=== PATIENT | male | born 1940 | race Caucasian/White ===

== ENCOUNTER 2017-06-28 07:32 | Day surgery (SDC) | payer MEDICARE, BC ==
[~2017-06-28] VITALS: Ht 175.3 cm; Wt 95.2 kg
[~2017-06-28 07:32] MED LIST: ANTIVERT 25MG25 MG PO; ASPIRIN E.C. 8181 MG PO; CARDI-OMEGA1000 MG PO; CEPHALEXIN500 M1 PO; COLACE 100100 MG/CAP PO; FLEXERIL10 MG PO; HCTZ 25MG TAB25 MG PO; LORTAB 5/500 501 TAB PO; MULTIPLE VITAMI1 CAP PO; NORCO 325 MG-51 TAB PO; PRILOSEC 20MG20 MG PO; ULTRAM 50MG TAB50 MG PO; VITAMIN D31000 I1 PO; ZETIA 10MG TAB10 MG PO
[2017-06-28 07:57] VITALS: BP 168/89; PULSE 65; TEMP 97.5
[2017-06-28] MEDS ORDERED: LIPITOR 10MG10 MG PO (08:31)
[2017-06-28] MEDS ORDERED: FLONASEALLERGY NS (08:35)
[2017-06-28] MEDS ORDERED: QUESTRAN4 GM/9 GM PO (08:35)
[2017-06-28] MEDS ORDERED: ATARAX 25MG25 MG/TAB PO (08:36)
[2017-06-28 08:37] LABS: CALCIUM 8.8 mg/dL (8.4-10.2); CREATININE, serum 0.73 mg/dL (0.66-1.25)
[2017-06-28] MEDS ORDERED: ACULAR 10 ML10 ML OS (08:37)
[2017-06-28] MEDS ORDERED: TOPROL XL 25MG25 MG PO (08:37)
[2017-06-28] MEDS ORDERED: METAMUCIL MUL0.52 GM PO (08:38)
[2017-06-28] MEDS ORDERED: LASIX 20MG TABL20 MG PO (08:40)
[2017-06-28] MEDS ORDERED: TRIAMCINOLONE A15 GM TP (08:40)
[2017-06-28 10:11] VITALS: BP 116/71; PULSE 66
[2017-06-28] MEDS ORDERED: NORCO 325 MG-51 TAB PO (10:22)
[2017-06-28] MEDS ORDERED: MOTRIN 600600 MG/TAB PO (10:22)
[2017-06-28] MEDS ORDERED: COLACE 100100 MG/CAP PO (10:22)
[2017-06-28 10:26] VITALS: BP 117/71; PULSE 63
[2017-06-28 10:41] VITALS: BP 120/73; PULSE 61
[2017-06-28 10:56] VITALS: BP 127/71; PULSE 56
[2017-06-28 11:11] VITALS: BP 138/77; PULSE 58
== END 2017-06-28 11:50 | disposition home or self-care (01) ==
LOC: SDCO 07:32
PROVIDERS: Nurse Anesthetist, Certified Registered
DX: K42.9 Umbilical hernia without obstruction or gangrene (principal); I10 Essential (primary) hypertension; E78.5 Hyperlipidemia, unspecified; E11.9 Type 2 diabetes mellitus without complications; I35.1 Nonrheumatic aortic (valve) insufficiency; E03.9 Hypothyroidism, unspecified; K21.9 Gastro-esophageal reflux disease without esophagitis; Z79.82 Long term (current) use of aspirin; Z90.49 Acquired absence of other specified parts of digestive tract; Z82.49 Family history of ischemic heart disease and other diseases of the circulatory system; Z80.9 Family history of malignant neoplasm, unspecified
CPT/HCPCS: C1781; J2704; J3010; J7120

== ENCOUNTER 2017-08-23 18:29 | Emergency (ER) | payer MEDICARE, BC ==
[~2017-08-23] VITALS: Ht 175.3 cm; Wt 92.7 kg
[~2017-08-23 18:29] MED LIST changes: +ACULAR 10 ML10 ML OS; +ATARAX 25MG25 MG/TAB PO; +FLONASEALLERGY NS; +LASIX 20MG TABL20 MG PO; +LIPITOR 10MG10 MG PO; +METAMUCIL MUL0.52 GM PO; +MOTRIN 600600 MG/TAB PO; +QUESTRAN4 GM/9 GM PO; +TOPROL XL 25MG25 MG PO; +TRIAMCINOLONE A15 GM TP
[2017-08-23 18:48] VITALS: TEMP 98.1
[2017-08-23 19:45] LABS: BASO % 0.4 % (0.0-2.0); EOS # 0.1 (0.0-0.7); EOS % 0.6 % (0-4.0); GRAN # 6.3 (1.4-6.5); GRAN % 79.5 % (42.2-75.2); HEMATOCRIT 43.3 % (42.0-52.0); HEMOGLOBIN 14.6 g/dl (13.5-18.0); LYMPH # 1.1 (1.2-3.4); LYMPH % 14.1 % (20.0-51.0); MEAN CELL VOLUME 91 fl (80.0-100.0); MEAN CORPUSCULAR HEMOGLOBIN 31 pg (27.0-31.0); MEAN CORPUSCULAR HGB CONC 34 g/dl (33.0-37.0); MEAN PLATELET VOLUME 9.2 fl (7.4-10.4); MONO # 0.4 (0.1-0.6); MONO % 5.1 % (1.7-9.3); PLATELET COUNT 143 K/mm3 (130-400); RED BLOOD COUNT 4.77 M/mm3 (4.20-5.60); REDCELL DISTRIBUTION WIDTH-CV 12.1 % (11.5-14.5)
[2017-08-23 19:45] LABS: COLLECTION METHOD CLEAN CATCH
[2017-08-23 19:54] LABS: MUCOUS Present /lpf; PH 5 (5-8); SQUAMOUS EPITHELIAL None Seen /hpf; URINE APPEARANCE Clear; URINE BACTERIA None Seen /hpf; URINE BILIRUBIN Negative (NEGATIVE); URINE BLOOD Negative (NEGATIVE); URINE COLOR Amber; URINE GLUCOSE Negative (NEGATIVE); URINE KETONE Trace (NEGATIVE); URINE LEUKOCYTE ESTERASE Negative (NEGATIVE); URINE NITRATE Negative (NEGATIVE); URINE PROTEIN(semi-quant) 1+ (NEGATIVE); URINE RBC 0-2 /hpf; URINE UROBILINOGEN Negative (NEGATIVE)
[2017-08-23] MEDS ORDERED: COLACE 100100 MG/CAP PO (19:55)
[2017-08-23 20:03] LABS: ALANINE AMINOTRANSFERASE 63 U/L (21-72); ALBUMIN 4.2 gm/dL (3.5-5.0); ALKALINE PHOSPHATASE 78 U/L (50-136); ANION GAP 10 mmol/L (7-16); AST,SGOT 43 U/L (15-37); BILIRUBIN,TOTAL 0.7 mg/dL (0.0-1.0); BLOOD UREA NITROGEN 22 mg/dL (9-20); CALCIUM 9.8 mg/dL (8.4-10.2); CARBON DIOXIDE 25 mmol/L (22-30); CHLORIDE 102 mmol/L (98-107); CREATININE, serum 0.89 mg/dL (0.66-1.25); GLUCOSE 153 mg/dL (74-106); LIPASE 137 U/L (23-300); POTASSIUM 4.1 mmol/L (3.4-5.0); SODIUM 137 mmol/L (137-145); TOTAL PROTEIN 6.5 gm/dL (6.4-8.2)
[2017-08-23 20:08] LABS: C-REACTIVE PROTEIN < 0.5 mg/dL (0.0-0.9)
[2017-08-23] MEDS ORDERED: FLOMAX 0.40.4 MG/CAP PO (21:49)
[2017-08-23] MEDS ORDERED: NORCO 325 MG-51 TAB PO (21:49)
[2017-08-23] MEDS ORDERED: ZOFRAN 4MG T4 MG/TAB PO (21:49)
[2017-08-23 22:04] VITALS: BP 161/99; PULSE 73
== END 2017-08-23 22:14 | disposition home or self-care (01) ==
LOC: COL.ER 18:29
PROVIDERS: Emergency Medicine
DX: N20.1 Calculus of ureter (principal); N23 Unspecified renal colic; Z79.82 Long term (current) use of aspirin; Z79.51 Long term (current) use of inhaled steroids
CPT/HCPCS: J1170; J2405; J7030

== ENCOUNTER 2017-08-25 14:20 | Day surgery (SDC) | payer MEDICARE, BC ==
[2017-08-25] VITALS (10 sets, daily range): BP systolic 122–161; BP diastolic 65–90; PULSE 63–106; TEMP 97.8–98.6
[~2017-08-25] VITALS: Ht 175.3 cm; Wt 96.7 kg
[~2017-08-25 14:20] MED LIST changes: +FLOMAX 0.40.4 MG/CAP PO; +ZOFRAN 4MG T4 MG/TAB PO
== END 2017-08-25 22:30 | disposition home or self-care (01) ==
LOC: SDCO 14:20 → SURG 18:50 → SDCO 22:30
DX: N20.1 Calculus of ureter (principal); I10 Essential (primary) hypertension; K21.9 Gastro-esophageal reflux disease without esophagitis; M17.9 Osteoarthritis of knee, unspecified; M16.9 Osteoarthritis of hip, unspecified; Z90.49 Acquired absence of other specified parts of digestive tract; Z88.1 Allergy status to other antibiotic agents; Z87.891 Personal history of nicotine dependence; Z82.49 Family history of ischemic heart disease and other diseases of the circulatory system
CPT/HCPCS: OP; C1769; J0690; J1100; J1885; J2270; J2405; J2704; J3010; J7030; Q9967

== ENCOUNTER 2018-02-17 13:02 | Day surgery (SDC) | payer MEDICARE, BC ==
[~2018-02-17] VITALS: Ht 170.2 cm; Wt 91.6 kg
[2018-02-17 13:34] VITALS: BP 139/88; PULSE 102; TEMP 97.7
[2018-02-17] MEDS ORDERED: VOLTAREN GEL 1%1 TU TP (13:46)
[2018-02-17] MEDS ORDERED: PROTONIX 40MG T40 MG PO (13:46)
[2018-02-17] MEDS ORDERED: METAMUCIL3.4 GM/Dos PO (13:49)
[2018-02-17] MEDS ORDERED: VITAMIN D31000 IU PO (13:50)
[2018-02-17 15:00] VITALS: BP 126/77; PULSE 80; TEMP 98.5
[2018-02-17 15:15] VITALS: BP 116/74; PULSE 82
[2018-02-17 15:30] VITALS: BP 125/99; PULSE 90
== END 2018-02-17 15:50 | disposition home or self-care (01) ==
LOC: SDCO 13:02
DX: K26.9 Duodenal ulcer, unspecified as acute or chronic, without hemorrhage or perforation (principal); K31.7 Polyp of stomach and duodenum; K92.1 Melena; D50.0 Iron deficiency anemia secondary to blood loss (chronic); K57.30 Diverticulosis of large intestine without perforation or abscess without bleeding; K21.9 Gastro-esophageal reflux disease without esophagitis; E78.00 Pure hypercholesterolemia, unspecified; I10 Essential (primary) hypertension; K58.9 Irritable bowel syndrome, unspecified; Z86.010 Personal history of colon polyps
CPT/HCPCS: OP; J2250; J3010; J7030

== ENCOUNTER 2018-03-23 11:26 | Outpatient (CLI) | payer MEDICARE, BC ==
[~2018-03-23] VITALS: Ht 170.2 cm; Wt 90.1 kg
[~2018-03-23 11:26] MED LIST changes: +METAMUCIL3.4 GM/Dos PO; +PROTONIX 40MG T40 MG PO; +VITAMIN D31000 IU PO; +VOLTAREN GEL 1%1 TU TP
[2018-03-23 11:50] VITALS: BP 104/72; PULSE 104; TEMP 97.3
[2018-03-23 13:00] VITALS: BP 108/72; PULSE 94
== END 2018-03-23 13:05 | disposition home or self-care (01) ==
LOC: EUO 11:26
DX: D64.9 Anemia, unspecified (principal); I95.9 Hypotension, unspecified; Z98.890 Other specified postprocedural states
CPT/HCPCS: J7030

== ENCOUNTER 2018-03-24 11:25 | Inpatient (IN) | payer MEDICARE, BC ==
[~2018-03-24] VITALS: Ht 172.7 cm; Wt 91.1 kg
[2018-03-24 12:39] VITALS: BP 113/72; PULSE 85; TEMP 97.9
[2018-03-24 15:17] LABS: BASO % 0.3 % (0.0-2.0); EOS # 0.1 (0.0-0.7); EOS % 0.8 % (0-4.0); GRAN # 3.6 (1.4-6.5); GRAN % 58.4 % (42.2-75.2); HEMOGLOBIN 10.1 g/dl (13.5-18.0); LYMPH # 1.9 (1.2-3.4); LYMPH % 31.3 % (20.0-51.0); MEAN CELL VOLUME 92 fl (80.0-100.0); MEAN CORPUSCULAR HEMOGLOBIN 30 pg (27.0-31.0); MEAN CORPUSCULAR HGB CONC 33 g/dl (33.0-37.0); MEAN PLATELET VOLUME 9.8 fl (7.4-10.4); MONO # 0.6 (0.1-0.6); PLATELET COUNT 164 K/mm3 (130-400); RED BLOOD COUNT 3.36 M/mm3 (4.20-5.60); REDCELL DISTRIBUTION WIDTH-CV 13.1 % (11.5-14.5)
[2018-03-24 15:20] LABS: HEMATOCRIT 30.9 % (42.0-52.0)
[2018-03-24 15:22] LABS: ALBUMIN 3.5 gm/dL (3.5-5.0); BILIRUBIN,TOTAL 0.4 mg/dL (0.0-1.0); CALCIUM 8.4 mg/dL (8.4-10.2); CREATININE, serum 0.74 mg/dL (0.66-1.25); POTASSIUM 3.8 mmol/L (3.4-5.0); TOTAL PROTEIN 5.8 gm/dL (6.4-8.2)
[2018-03-24 19:47] VITALS: BP 126/75; PULSE 75; TEMP 98
[2018-03-24 23:20] VITALS: BP 113/49; PULSE 63; TEMP 98.4
[2018-03-25 04:26] VITALS: BP 128/67; PULSE 66; TEMP 98.2
[2018-03-25 06:53] LABS: CALCIUM 7.9 mg/dL (8.4-10.2); CREATININE, serum 0.69 mg/dL (0.66-1.25); POTASSIUM 3.9 mmol/L (3.4-5.0)
[2018-03-25 07:03] VITALS: BP 138/67; PULSE 65; TEMP 98.2
[2018-03-25 09:21] LABS: MEAN CELL VOLUME 89 fl (80.0-100.0); MEAN CORPUSCULAR HGB CONC 34 g/dl (33.0-37.0); MEAN PLATELET VOLUME 9.9 fl (7.4-10.4); PLATELET COUNT 143 K/mm3 (130-400); RED BLOOD COUNT 3.21 M/mm3 (4.20-5.60); REDCELL DISTRIBUTION WIDTH-CV 12.8 % (11.5-14.5)
[2018-03-25 09:25] LABS: HEMATOCRIT 28.6 % (42.0-52.0); HEMOGLOBIN 9.6 g/dl (13.5-18.0); MEAN CORPUSCULAR HEMOGLOBIN 30 pg (27.0-31.0)
[2018-03-25 11:33] VITALS: BP 152/73; PULSE 67; TEMP 98
[2018-03-25 15:09] VITALS: BP 147/74; PULSE 75; TEMP 97.8
[2018-03-25 19:19] VITALS: BP 149/60; PULSE 65; TEMP 98
[2018-03-26 00:30] VITALS: BP 151/71; PULSE 76; TEMP 97.8
[2018-03-26 04:05] VITALS: BP 148/65; PULSE 66; TEMP 98.3
[2018-03-26 06:03] LABS: BASO % 0.6 % (0.0-2.0); EOS # 0.1 (0.0-0.7); EOS % 2.3 % (0-4.0); GRAN # 2.6 (1.4-6.5); GRAN % 53.9 % (42.2-75.2); HEMATOCRIT 28.6 % (42.0-52.0); HEMOGLOBIN 9.6 g/dl (13.5-18.0); LYMPH # 1.7 (1.2-3.4); LYMPH % 34.3 % (20.0-51.0); MEAN CELL VOLUME 91 fl (80.0-100.0); MEAN CORPUSCULAR HEMOGLOBIN 30 pg (27.0-31.0); MEAN CORPUSCULAR HGB CONC 34 g/dl (33.0-37.0); MEAN PLATELET VOLUME 10.2 fl (7.4-10.4); MONO # 0.4 (0.1-0.6); MONO % 8.5 % (1.7-9.3); PLATELET COUNT 139 K/mm3 (130-400); RED BLOOD COUNT 3.15 M/mm3 (4.20-5.60); REDCELL DISTRIBUTION WIDTH-CV 12.8 % (11.5-14.5)
[2018-03-26 07:29] VITALS: BP 140/65; PULSE 69; TEMP 98.5
[2018-03-26] MEDS ORDERED: FERROUS SU325 MG/TAB PO (09:04)
== END 2018-03-26 10:51 | disposition home or self-care (01) | DRG 378 ==
LOC: MEDICAL 11:25
PROVIDERS: Internal Medicine; Internal Medicine Gastroenterology
PROC: 0W3P8ZZ Control Bleeding in Gastrointestinal Tract, Via Natural or Artificial Opening Endoscopic (ICD-10-PCS; principal; 2018-03-24 16:00)
DX: K26.4 Chronic or unspecified duodenal ulcer with hemorrhage (principal); D62 Acute posthemorrhagic anemia; I10 Essential (primary) hypertension; Z87.891 Personal history of nicotine dependence
CPT/HCPCS: 99222-AI; 99232-AI; 99239; J2250; J3010

== ENCOUNTER → 2018-11-03 | Outpatient (CLI) | payer MEDICARE, BC ==
[~2018-11-03] MED LIST changes: +FERROUS SU325 MG/TAB PO
== END ==
LOC: COL.RAD 10:53
DX: K57.30 Diverticulosis of large intestine without perforation or abscess without bleeding (principal); M46.96 Unspecified inflammatory spondylopathy, lumbar region; M16.11 Unilateral primary osteoarthritis, right hip; K76.0 Fatty (change of) liver, not elsewhere classified; Z90.49 Acquired absence of other specified parts of digestive tract; D35.02 Benign neoplasm of left adrenal gland; N20.2 Calculus of kidney with calculus of ureter

== ENCOUNTER → 2019-12-06 | Outpatient (CLI) | payer MEDICARE, BC | LOC: COL.RAD 13:41 | DX: N20.0 Calculus of kidney (principal); N28.89 Other specified disorders of kidney and ureter; Z90.49 Acquired absence of other specified parts of digestive tract ==

== ENCOUNTER 2019-12-29 05:12 | Emergency (ER) | payer MEDICARE, BC ==
[~2019-12-29] VITALS: Ht 175.3 cm; Wt 90.9 kg
[2019-12-29 05:16] VITALS: TEMP 98
[2019-12-29] MEDS ORDERED: NORCO 325 MG-51 TAB PO (05:59)
[2019-12-29] MEDS ORDERED: ZOFRAN ODT4 MG PO (06:00)
[2019-12-29 07:03] VITALS: BP 171/93; PULSE 65
== END 2019-12-29 07:03 | disposition home or self-care (01) ==
LOC: COL.ER 05:12
DX: R10.9 Unspecified abdominal pain (principal); I10 Essential (primary) hypertension; E78.5 Hyperlipidemia, unspecified; Z87.442 Personal history of urinary calculi; Z90.49 Acquired absence of other specified parts of digestive tract; Z98.890 Other specified postprocedural states

== ENCOUNTER 2019-12-29 09:00 | Observation (INO) | payer MEDICARE, BC ==
[2019-12-29] VITALS (11 sets, daily range): BP systolic 138–154; BP diastolic 68–88; PULSE 66–73; TEMP 98.3–98.7
[~2019-12-29] VITALS: Ht 175.3 cm; Wt 94.2 kg
[~2019-12-29 09:00] MED LIST changes: +ZOFRAN ODT4 MG PO
--- NOTE | 2019-12-29 10:30 | NUR ---
Patient arrived to floor just after 0900 ambulatory with admissions. Patient is alert and oriented, answers questions appropriately. Admission assessment is completed, medication reconciliation completed. 20G IV placed in RAC with one attempt. Morphine HEALTH POLICY NURSE initated per kidney stone order set. PRN zofran administered per patient request after he reported that he had some nausea and had vomited twice today. Patient did not report emesis. Patient currently resting and denies further needs, call llight within reach.
--- NOTE | 2019-12-29 14:20 | NUR ---
Plan: To return home with Asha h C Assessment: Patient reports taht he resides locally with and his pcp is Dr. Rodarte, Jonathon w/ upcoming appointment in 4 weeks. Patient reports that he uses [facility] for medications. Patient denies 02 use at home. JOSAFAT is his and son Kathi. Patient reports that he has transportation home and does not have difficulty with medications. Patient report that he is receiving good care. ACtion: SW educated patient on services and community suports. Will continue to follow care.
--- NOTE | 2019-12-29 17:46 | NUR ---
Patient currently resting in bed, rouses easily, and remains alert and oriented while awake. Patient reports that pain is well controlled. Patient does report frustration that the DREDGE BOAT ENGINEER pauses and then alarms frequently due to the fact that he breathes through his mouth while sleeping and the CO2 monitor does not register his breaths. Educated patient on end tidal CO2 monitor purpose and function, patient verbalized understanding. Patient denies further needs at this time, call light within reach.
--- NOTE | 2019-12-29 18:55 | NUR ---
PATIENT RESTING IN BED DURING CHANGE OF SHIFT REPORT RECEIVED FROM DAY SHIFT NURSEJUNIE. IVF AND AQUATIC ECOLOGIST IN PLACE AND PATENT, VOIDING SEMI LIGHT ALEKSANDRA URINE WITH NO DEBRIS STRAINED OUT.
--- NOTE | 2019-12-29 20:00 | NUR ---
PATIENT VOIDING WITH NO PROBLEMS OR CONCERNS. CONTINUE TO STRAIN URINE, WITH NO DEBRIS OR STONES OBSERVED. REPORTS PRIMER SUPERVISOR HELPS WITH PAIN CONTROL AT THIS TIME.
[2019-12-30] VITALS (11 sets, daily range): BP systolic 122–169; BP diastolic 57–93; PULSE 62–104; TEMP 97.9–99.5
--- NOTE | 2019-12-30 01:26 | NUR ---
PATIENT SLEEPING, CO2 MONITOR IN PLACE, INTERMITTENTLY ALARMS OFF DUE TO PATIENT MOUTH BREATHING WITH SLEEPING. DOES NOT AWAKEN WITH ALARMS GOING OFF, DOES AWAKEN EASILY. IVF AND BLANKET CUTTER HAND CONTINUES WITH NO PROBLEMS.
--- NOTE | 2019-12-30 07:00 | NUR ---
PATIENT UP INDEPENDENTLY IN ROOM DURING CHANGE OF SHIFT REPORT GIVEN TO DAY SHIFT NURSEJUNIE.
--- NOTE | 2019-12-30 08:00 | NUR ---
Patient resting in bed at this time. Patient is sleepy but rouses easily. PRIMARY EDUCATION PROFESSOR in place. Patient reports that pain is well controlled. Patient voiding into the urinal independently, urine is corina, no sediment apparent when strained. Patient denies further needs at this time,c all light within reach.
--- NOTE | 2019-12-30 16:45 | NUR ---
Patient arrives back to floor from PACU at approximately 1645 via bed. Patient is sleepy, rouses with some effort and returns to sleep quickly. Post op checks initiated. Call light within reach.
--- NOTE | 2019-12-30 18:45 | NUR ---
PATIENT UP IN ROOM INDEPENDENTLY DURING CHANGE OF SHIFT REPORT RECEIVED FROM JUNIE. PATIENT STATES HE IS READY TO BE DISMISSED, TOLERATING ORAL INTAKE OF SOLID FOOD, VOIDING WITH NO PROBLEMS OR CONCERNS. PATIENT REPORTS HE FEELS BETTER THAN HE HAS FELT IN THE LAST 2-3 WEEKS.
--- NOTE | 2019-12-30 19:45 | NUR ---
REVIEWED WITH PATIENT DISCHARGE INSTRUCTIONS, CRITERIA MET FOR DISCHARGE POST OP, SEE DISCHARGE PAPERWORK. PATIENT TO BE DISCHARGE TO HOME WITH , DENIES ANY FURTHER QUESTIONS/CONCERNS REGARDING DISCHARGE INSTRUCTION.
--- NOTE | 2019-12-30 20:00 | NUR ---
PATIENT DISCHARGED OFF SURGICAL UNIT VIA W/C, ACCOMPANIED BY RN.
== END 2019-12-30 20:00 | disposition home or self-care (01) ==
LOC: SURG 09:00
PROVIDERS: ADMIT Urology
DX: N20.1 Calculus of ureter (principal); Z88.1 Allergy status to other antibiotic agents; Z79.899 Other long term (current) drug therapy
CPT/HCPCS: C1769; C2617; G0378; J1100; J2270; J2405; J2704; J3010; J7030; Q9967

== ENCOUNTER 2020-06-09 20:33 | Emergency (ER) | payer MEDICARE, BC ==
[~2020-06-09] VITALS: Ht 172.7 cm; Wt 93.2 kg
[2020-06-09 20:38] VITALS: TEMP 98.3
[2020-06-09 20:47] LABS: BASO % 0.3 % (0.0-2.0); EOS # 0.1 (0.0-0.7); GRAN # 6.2 (1.4-6.5); GRAN % 69.9 % (42.2-75.2); HEMATOCRIT 41.5 % (42.0-52.0); LYMPH # 1.9 (1.2-3.4); LYMPH % 21.4 % (20.0-51.0); MEAN CELL VOLUME 93 fl (80.0-100.0); MEAN CORPUSCULAR HEMOGLOBIN 32 pg (27.0-31.0); MEAN CORPUSCULAR HGB CONC 34 g/dl (33.0-37.0); MEAN PLATELET VOLUME 9.8 fl (7.4-10.4); MONO # 0.6 (0.1-0.6); MONO % 7.1 % (1.7-9.3); PLATELET COUNT 116 K/mm3 (130-400); RED BLOOD COUNT 4.45 M/mm3 (4.20-5.60); REDCELL DISTRIBUTION WIDTH-CV 12.7 % (11.5-14.5)
[2020-06-09 21:00] LABS: BILIRUBIN,TOTAL 0.6 mg/dL (0.0-1.0); CALCIUM 9.1 mg/dL (8.4-10.2); CREATININE, serum 0.86 (0.66-1.25); POTASSIUM 3.7 mmol/L (3.4-5.0); TOTAL PROTEIN 6.1 gm/dL (6.4-8.2)
[2020-06-09 21:13] LABS: TROPONIN-I 0.128 ng/mL (0.000-0.035)
[2020-06-09] MEDS ORDERED: ONE-A-DAY ESSE1 EACH PO (22:32)
[2020-06-09] MEDS ORDERED: COLACE 100100 MG/CAP PO (22:40)
[2020-06-09] MEDS ORDERED: FIBER0.52 GM PO (22:41)
[2020-06-10 00:02] VITALS: BP 156/88; PULSE 72
== END 2020-06-10 | disposition short-term general hospital (02) ==
LOC: COL.ER 20:33
PROVIDERS: Emergency Medicine
DX: I71.00 Dissection of unspecified site of aorta (principal); E78.5 Hyperlipidemia, unspecified; I10 Essential (primary) hypertension; Z20.828 Contact with and (suspected) exposure to other viral communicable diseases; Z88.1 Allergy status to other antibiotic agents
CPT/HCPCS: Q9967

== ENCOUNTER 2020-10-15 11:49 | Outpatient (RCR) | payer MEDICARE, BC ==
[~2020-10-15 11:49] MED LIST changes: +FIBER0.52 GM PO; +ONE-A-DAY ESSE1 EACH PO
== END 2020-10-17 16:06 | disposition home or self-care (01) ==
LOC: COL.CR 11:49
DX: Z48.812 Encounter for surgical aftercare following surgery on the circulatory system (principal); Z95.2 Presence of prosthetic heart valve; I35.1 Nonrheumatic aortic (valve) insufficiency

== ENCOUNTER 2020-11-06 18:34 | Emergency (ER) | payer MEDICARE, BC ==
[~2020-11-06] VITALS: Ht 175.3 cm; Wt 91.4 kg
[2020-11-06 18:44] VITALS: TEMP 98.1
[2020-11-06 19:48] LABS: BASO % 0.5 % (0.0-2.0); EOS # 0.1 (0.0-0.7); GRAN # 3.7 (1.4-6.5); GRAN % 60.7 % (42.2-75.2); HEMATOCRIT 38.7 % (42.0-52.0); HEMOGLOBIN 13.1 g/dl (13.5-18.0); LYMPH # 1.8 (1.2-3.4); LYMPH % 28.7 % (20.0-51.0); MEAN CELL VOLUME 91 fl (80.0-100.0); MEAN CORPUSCULAR HEMOGLOBIN 31 pg (27.0-31.0); MEAN CORPUSCULAR HGB CONC 34 g/dl (33.0-37.0); MEAN PLATELET VOLUME 9.2 fl (7.4-10.4); MONO # 0.5 (0.1-0.6); MONO % 8.8 % (1.7-9.3); PLATELET COUNT 151 K/mm3 (130-400); RED BLOOD COUNT 4.27 M/mm3 (4.20-5.60); REDCELL DISTRIBUTION WIDTH-CV 13.9 % (11.5-14.5)
[2020-11-06 20:02] LABS: ANION GAP 6 mmol/L (7-16); BLOOD UREA NITROGEN 28 mg/dL (9-20); CALCIUM 9.2 mg/dL (8.4-10.2); CARBON DIOXIDE 27 mmol/L (22-30); CHLORIDE 103 mmol/L (98-107); GLUCOSE 98 mg/dL (74-106); POTASSIUM 4.2 mmol/L (3.4-5.0); SODIUM 135 mmol/L (137-145)
[2020-11-06 20:03] LABS: C-REACTIVE PROTEIN < 0.5 mg/dL (0.0-0.9)
[2020-11-06 20:24] LABS: STREP SCREEN NEGATIVE
[2020-11-06 21:56] LABS: ERYTHROCYTE SEDIMENTATION RATE 1 mm/hr (0-30)
[2020-11-06 22:30] VITALS: BP 136/78; PULSE 84
== END 2020-11-06 21:35 | disposition home or self-care (01) ==
LOC: COL.ER 18:34
PROVIDERS: Emergency Medicine
DX: J02.9 Acute pharyngitis, unspecified (principal); I25.10 Atherosclerotic heart disease of native coronary artery without angina pectoris; I10 Essential (primary) hypertension; E78.5 Hyperlipidemia, unspecified; Z87.891 Personal history of nicotine dependence; Z88.1 Allergy status to other antibiotic agents; Z79.899 Other long term (current) drug therapy
CPT/HCPCS: Q9967

== ENCOUNTER 2021-06-26 09:43 | Outpatient (CLI) | payer MEDICARE, BC ==
[~2021-06-26] VITALS: Ht 175.4 cm; Wt 95.3 kg
[~2021-06-26 09:43] MED LIST changes: -FIBER0.52 GM PO; -LIPITOR 10MG10 MG PO; +LIPITOR 40MG TA40 MG PO; -TOPROL XL 25MG25 MG PO; +TOPROL XL 50MG50 MG PO
[2021-06-26 10:12] VITALS: BP 124/75; PULSE 68; TEMP 98
[2021-06-26] MEDS ORDERED: TYLENOL 500MG500 MG PO (10:15)
[2021-06-26] MEDS ORDERED: ZYRTEC5 MG PO (10:16)
[2021-06-26] MEDS ORDERED: ASPIRIN E.C. 8181 MG PO (10:16)
[2021-06-26] MEDS ORDERED: CORDARONE200 MG/TAB PO (10:16)
[2021-06-26] MEDS ORDERED: FLONASE NASAL S16 GM NS (10:17)
[2021-06-26] MEDS ORDERED: LASIX 40MG TABL40 MG PO (10:17)
[2021-06-26] MEDS ORDERED: MUCINEX 60600 MG/TA1 PO (10:18)
[2021-06-26] MEDS ORDERED: NAMENDA5 MG PO (10:19)
[2021-06-26] MEDS ORDERED: COZAAR 50MG50 MG/TAB PO (10:19)
[2021-06-26] MEDS ORDERED: K-DUR20 MEQ PO (10:20)
[2021-06-26] MEDS ORDERED: MIRALAX PA17 GM/Dose PO (10:20)
[2021-06-26] MEDS ORDERED: COUMADIN 1MG1 MG/TAB PO (10:22)
[2021-06-26] MEDS ORDERED: CLEOCIN HC150 MG/CAP PO (11:52)
--- NOTE | 2021-06-26 12:00 | NUR ---
Discharge instructions given to pt.Pt verbalizes understanding.Pt escorted out by this nurse.
== END 2021-06-26 12:19 ==
LOC: COL.CAR 09:43
DX: I49.8 Other specified cardiac arrhythmias (principal); I10 Essential (primary) hypertension; I48.91 Unspecified atrial fibrillation; I35.1 Nonrheumatic aortic (valve) insufficiency; K21.9 Gastro-esophageal reflux disease without esophagitis; E78.5 Hyperlipidemia, unspecified; E03.9 Hypothyroidism, unspecified; R73.01 Impaired fasting glucose; M19.90 Unspecified osteoarthritis, unspecified site; M81.0 Age-related osteoporosis without current pathological fracture; Z86.73 Personal history of transient ischemic attack (TIA), and cerebral infarction without residual deficits; Z79.01 Long term (current) use of anticoagulants; Z90.49 Acquired absence of other specified parts of digestive tract; Z79.82 Long term (current) use of aspirin; Z95.2 Presence of prosthetic heart valve; Z79.899 Other long term (current) drug therapy; Z87.891 Personal history of nicotine dependence; Z80.9 Family history of malignant neoplasm, unspecified
CPT/HCPCS: 27886; C1764

== ENCOUNTER → 2021-10-13 | Outpatient (CLI) | payer MEDICARE, BC ==
[~2021-10-13] MED LIST changes: +CLEOCIN HC150 MG/CAP PO; +CORDARONE200 MG/TAB PO; +COUMADIN 1MG1 MG/TAB PO; +COZAAR 50MG50 MG/TAB PO; +FLONASE NASAL S16 GM NS; +K-DUR20 MEQ PO; +LASIX 40MG TABL40 MG PO; +MIRALAX PA17 GM/Dose PO; +MUCINEX 60600 MG/TA1 PO; +NAMENDA5 MG PO; +TYLENOL 500MG500 MG PO; +ZYRTEC5 MG PO
== END ==
LOC: COL.RAD 14:04
DX: I77.810 Thoracic aortic ectasia (principal); I10 Essential (primary) hypertension; Z95.2 Presence of prosthetic heart valve
CPT/HCPCS: Q9967

== ENCOUNTER 2022-01-06 08:25 | Day surgery (SDC) | payer MEDICARE, BC ==
[~2022-01-06] VITALS: Ht 175.3 cm; Wt 101.3 kg
[2022-01-06] VITALS (10 sets, daily range): BP systolic 111–154; BP diastolic 69–91; PULSE 53–78; TEMP 97.5–98
[2022-01-06 09:30] LABS: HEMATOCRIT 38.7 % (42.0-52.0); HEMOGLOBIN 13.1 g/dl (13.5-18.0); MEAN CELL VOLUME 91 fl (80.0-100.0); MEAN CORPUSCULAR HEMOGLOBIN 31 pg (27-31); MEAN CORPUSCULAR HGB CONC 34 g/dl (33.0-37.0); MEAN PLATELET VOLUME 9.6 fl (7.4-10.4); PLATELET COUNT 134 K/mm3 (130-400); RED BLOOD COUNT 4.26 M/mm3 (4.20-5.60); REDCELL DISTRIBUTION WIDTH-CV 13.2 % (11.5-14.5)
[2022-01-06 09:38] LABS: INR 2.2 (0.8-3.0); PROTHROMBIN TIME 25.5 SECONDS (9.7-12.8)
[2022-01-06 09:47] LABS: CALCIUM 8.6 mg/dL (8.4-10.2); CREATININE, serum 0.92 mg/dL (0.72-1.25); POTASSIUM 4.2 mmol/L (3.5-4.5)
--- NOTE | 2022-01-06 12:09 | NUR ---
SEE MERGE FOR ALL MEDICATION ADMIMINISTRATION TIMES INTRA AND POST SEDATION ASSESSMENTS
--- NOTE | 2022-01-06 14:00 | NUR ---
PT ADMITTED FROM [facility]. PT HAD A PACEMAKER PLACED TO LEFT CHEST AND LOOP RECORDER REMOVED. PT IS AXOX4. VSS. BEDSIDE. PT ORIENTED TO ROOM AND FLOOR. PT HAS CALL LIGHT AND PHONE. PT INSTRUCTED TO NOT USE LEFT ARM, SLING IN PLACE. NO NEEDS AT THIS TIME.
--- NOTE | 2022-01-07 02:05 | NUR ---
Pt alert and oriented, resting queitly, follows commands. Pt denies chest pain/SOB. Pt does report tenderness at pacemaker site, but is tolerable. Pt called out around 0145, reporting anxiety and restlessness. Administered prn restoril, will reassess pt. Pacemaker site noted on the left chest. Second incision site noted in middle of chest where loop recorder was removed. Both incision sites clean/dry/intact, covered with gauze/tape. Pacemaker site slightly bruised around one edge, but no edema/drainage/hematoma noted. Arm remains in sling. Pt reports he can "feel his heart beating", but that it has lessened. Shift assessment performed. Medications administered and education provided. VS stable. Pt on room air. Afebrile. BP runs in 140's systolic. Continuing with PO prophylactic antibx overnight as ordered. Pt has adeuqte urine output. Pt sitting upright currently and does not report any questions at this time, will continue to monitor.
[2022-01-07 03:56] VITALS: BP 151/52; BP 151/82; PULSE 70; TEMP 97.9
--- NOTE | 2022-01-07 04:40 | NUR ---
No adverse events overnight. Pt alert and oriented, resting. Pacemaker and loop recorder incision sites remain clean/dry/intact. No edema/drainage/hematoma noted. Pt reports tenderness at site. Arm remains in sling. Offered to apply ice to site and pt declined. Pt voided overnight. Device download will be this morning. Pt denies chest pain/SOB. HR remains NSR. VS stable. Remains on room air. Pt does not report any questions at this time, will continue to monitor.
[2022-01-07 06:46] LABS: BASO % 0.5 % (0.0-2.0); EOS # 0.1 K/mm3 (0.0-0.7); EOS % 2.2 % (0.0-4.0); GRAN # 4.2 K/mm3 (1.4-6.5); GRAN % 65.5 % (42.2-75.2); HEMATOCRIT 38.2 % (42.0-52.0); HEMOGLOBIN 13.1 g/dl (13.5-18.0); LYMPH # 1.4 K/mm3 (1.2-3.4); LYMPH % 21.6 % (20.0-51.0); MEAN CELL VOLUME 91 fl (80.0-100.0); MEAN CORPUSCULAR HEMOGLOBIN 31 pg (27-31); MEAN CORPUSCULAR HGB CONC 34 g/dl (33.0-37.0); MEAN PLATELET VOLUME 9.9 fl (7.4-10.4); MONO # 0.6 K/mm3 (0.1-0.6); MONO % 9.9 % (1.7-9.3); PLATELET COUNT 120 K/mm3 (130-400); RED BLOOD COUNT 4.19 M/mm3 (4.20-5.60); REDCELL DISTRIBUTION WIDTH-CV 13.1 % (11.5-14.5)
[2022-01-07 06:55] LABS: INR 1.6 (0.8-3.0); PROTHROMBIN TIME 18.6 SECONDS (9.7-12.8)
[2022-01-07 07:01] LABS: CALCIUM 8.4 mg/dL (8.4-10.2); CREATININE, serum 0.82 mg/dL (0.72-1.25); POTASSIUM 3.9 mmol/L (3.5-4.5)
[2022-01-07 07:37] VITALS: BP 126/70; PULSE 81; TEMP 97.9
[2022-01-07] MEDS ORDERED: CLEOCIN HCL300 MG PO (10:56)
[2022-01-07 11:49] VITALS: BP 111/59; PULSE 68; TEMP 98.2
--- NOTE | 2022-01-07 12:21 | NUR ---
Libby: [facility] Situation: solar power installer stopped by room on rounds Background: PT was sitting on the side of the bed resting Assessment: PT talked about life and different aspects of his time in [facility]. Recommendation: Soils Engineer will follow up as needed
--- NOTE | 2022-01-07 14:05 | NUR ---
PATIENT RESTING IN CHAIR. AMBULATES INDEPENDENTLY. NO COMPLAINTS OF PAIN. IMPLANT SITE SOFT AND NON-TENDER. NO DIFFICULTY BREATHING. EKG, PACEMAKER DOWNLOAD AND CHEST XRAY COMPLETE. PATIENT AWAITING ROUNDS FOR DISCHARGE ORDERS.
--- NOTE | 2022-01-07 14:20 | NUR ---
PATIENT TELE REMOVED, DISCHARGE INSTRUCTIONS GIVEN BY RNNELLY AND IV DISCONTINUED.
== END 2022-01-07 14:24 | disposition home or self-care (01) ==
LOC: COL.CAR 08:25 → MEDICAL 14:32 → COL.CAR 01-07 14:24
PROVIDERS: Internal Medicine Cardiovascular Disease
DX: I49.5 Sick sinus syndrome (principal); I48.0 Paroxysmal atrial fibrillation; I10 Essential (primary) hypertension; Z79.01 Long term (current) use of anticoagulants; E78.5 Hyperlipidemia, unspecified; I77.810 Thoracic aortic ectasia
CPT/HCPCS: OP; C1769; C1785; C1894; C1898; J2250; J3010; J3370; J3430; J7030; J7050

== ENCOUNTER 2022-02-21 06:43 | Emergency (ER) | payer MEDICARE, BC ==
[~2022-02-21] VITALS: Ht 172.7 cm; Wt 94.5 kg
[~2022-02-21 06:43] MED LIST changes: +CLEOCIN HCL300 MG PO
[2022-02-21 06:47] VITALS: TEMP 97.8
[2022-02-21 07:26] LABS: BASO % 0.5 % (0.0-2.0); EOS # 0.2 K/mm3 (0.0-0.7); EOS % 2.7 % (0.0-4.0); GRAN # 5.7 K/mm3 (1.4-6.5); GRAN % 69.3 % (42.2-75.2); HEMOGLOBIN 14.1 g/dl (13.5-18.0); INR 3.6 (0.8-3.0); LYMPH # 1.4 K/mm3 (1.2-3.4); LYMPH % 17.6 % (20.0-51.0); MEAN CELL VOLUME 94 fl (80.0-100.0); MEAN CORPUSCULAR HEMOGLOBIN 32 pg (27-31); MEAN CORPUSCULAR HGB CONC 34 g/dl (33.0-37.0); MONO # 0.8 K/mm3 (0.1-0.6); MONO % 9.7 % (1.7-9.3); PLATELET COUNT 144 K/mm3 (130-400); PROTHROMBIN TIME 42.1 SECONDS (9.7-12.8); RED BLOOD COUNT 4.45 M/mm3 (4.20-5.60)
[2022-02-21 07:29] LABS: PARTIAL THROMBOPLASTIN TIME 47.2 SECONDS (26.0-37.0)
[2022-02-21 07:36] LABS: BILIRUBIN,TOTAL 0.8 mg/dL (0.2-1.2); CALCIUM 9.3 mg/dL (8.4-10.2); CREATININE, serum 1.08 mg/dL (0.72-1.25); MAGNESIUM 2.1 mg/dL (1.6-2.6); PHOSPHOROUS 3.2 mg/dL (2.3-4.7); POTASSIUM 4.5 mmol/L (3.5-4.5); TOTAL PROTEIN 6.8 gm/dL (6.2-8.1)
[2022-02-21 07:43] LABS: TROPONIN-I 0.02 ng/mL (0.00-0.033)
[2022-02-21 11:00] VITALS: BP 120/88; PULSE 68
== END 2022-02-21 11:00 | disposition short-term general hospital (02) ==
LOC: COL.ER 06:43
PROVIDERS: Emergency Medicine
DX: I71.01 Dissection of thoracic aorta (principal); R79.0 Abnormal level of blood mineral; Z95.0 Presence of cardiac pacemaker; Z95.1 Presence of aortocoronary bypass graft; Z87.891 Personal history of nicotine dependence
CPT/HCPCS: J7050; Q9967